=== PATIENT | female | born 1960 | race Caucasian/White ===

== ENCOUNTER → 2017-01-03 | Outpatient (CLI) | payer OTHER ==
[~2017-01-03] MED LIST: ASPIRIN 81M81 MG/TA2 PO; ASPIRIN E.C. 8181 MG PO; B-121000 MCG PO; CALCIUM + D 6001 TA1 PO; CALCIUM600 M2 PO; CHROMIUM PICO500 MC1 PO; ESTER C1 TA1 PO; GLUCOPHAGE500 MG/TAB PO; M2 CHROMIUM500 MCG PO; METFORMIN500 MG PO; MULTIVITAMIN1 TA1 PO; NORCO 325 MG-51 TAB PO; PRAVACHOL 20MG20 MG PO; PRILOSEC 20MG20 MG PO; SIMVASTATIN20 MG PO; VITAMIN B12500 MCG PO
== END ==
LOC: MC.RAD 11:16
DX: Z12.31 Encounter for screening mammogram for malignant neoplasm of breast (principal)

== ENCOUNTER → 2018-02-21 | Outpatient (CLI) | payer OTHER | LOC: MC.RAD 13:57 | DX: Z12.31 Encounter for screening mammogram for malignant neoplasm of breast (principal) ==

== ENCOUNTER → 2019-03-30 | Outpatient (CLI) | payer OTHER | LOC: MC.RAD 03-20 14:30 | DX: Z12.31 Encounter for screening mammogram for malignant neoplasm of breast (principal) ==

== ENCOUNTER → 2020-03-31 | Outpatient (CLI) | payer OTHER | LOC: MC.RAD 09:45 | DX: Z12.31 Encounter for screening mammogram for malignant neoplasm of breast (principal) ==

== ENCOUNTER → 2021-05-22 | Outpatient (CLI) | payer OTHER | LOC: MC.RAD 04-03 10:30 | DX: Z12.31 Encounter for screening mammogram for malignant neoplasm of breast (principal) ==